=== PATIENT | male | born 1975 | race Caucasian/White ===

== ENCOUNTER 2020-02-03 13:41 | Emergency (ER) | payer SELFPAY ==
[2020-02-03 14:05] VITALS: BP 134/72; PULSE 66; RESP 18; TEMP 36.6; O2SAT 100; BMI 19.0
--- NOTE | 2020-02-03 14:10 | ED_ITS ---
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 Patient reports starting yesterday he started throwing up in the evening and has persisted throughout the night. Patient reports some epigastric abdominal pain. Patient appears mildly unwell. Patient appears in no severe pain. MD elicited complaint: nausea and vomiting Associated nausea: Yes Associated symtoms: Reports nausea Review of Systems General: Reports: 10 or more systems reviewed and unremarkable except in HPI and below GI: Reports: nausea and vomiting PFSH ED PFSH: Social History Smoking and tobacco status: never smoked Physical Exam Const: COMMON NORMALS: no apparent distress and oriented x3 GENERAL APPEARANCE: cooperative HENMT: COMMON NORMALS: normocephalic, TM's normal bilaterally and external nose normal HEAD & SCALP: normal to inspection and normocephalic NOSE: external nose normal TYMPANIC MEMBRANE: TM's normal bilaterally MOUTH: oral and palatal mucosa abnormal (Oral mucosa is dry) THROAT: posterior oropharynx normal Eye: GENERAL EYE: normal appearance of both eyes Neck/C-Spine: COMMON NORMALS: full ROM Lymph: LYMPHATIC: no lymphadenopathy noted Chest: COMMONS NORMALS: inspection of chest normal Resp: COMMON NORMALS: normal respiratory effort EFFORT & INSPECTION: Yes able to speak in complete sentences Cardio: COMMON NORMALS: regular rate and regular rhythm RATE: regular rate RHYTHM: regular rhythm GI: PALPATION: Yes tender (mild central) : COMMON NORMALS: Yes no CVA tenderness BLADDER/KIDNEY EXAM: Yes no CVA tenderness Back/Pelvis: COMMON NORMALS: no CVA tenderness and thoracic and lumbar spine normal to inspection Extremity: COMMON NORMALS: normal to inspection Neuro: COMMON NORMALS: oriented x3 and moves all extremities Psych: COMMON NORMALS: mental status grossly normal and cooperative Skin: COMMON NORMALS: no rashes or lesions noted GENERAL SKIN EXAM: no rashes or lesions noted Course Vital Signs: Vital signs: Vital Signs Temperature 98 F 02/03/20 14:05 Pulse Rate 66 02/03/20 14:05 Respiratory Rate 16 02/03/20 14:34 Blood Pressure 134/72 02/03/20 14:05 Pulse Oximetry 100 02/03/20 14:05 MDM - Nausea/Vomiting/Diarrhea MDM Narrative: Medical decision making narrative: Patient comes in today for concerns of heat exhaustion and dehydration. 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 Patient reports that he feels like this is what is going on today. On exam patient abdomen soft with some mild epigastric tenderness. Respirations are even lungs are clear to auscultation vital signs are normal. Differential diagnosis includes gastroenteritis, heat exhaustion, dehydration, pancreatitis. Laboratory values noted dehydration with a creatinine of 1.2 and BUN of 25. Patient also had some mild hypokalemia. Patient was treated with IV fluids 1500 mL's with improvement of symptoms. Patient was also given ondansetron for nausea and 20 mEq of potassium for low potassium. Reviewed exam and recommendations for follow-up with patient. Patient reported understanding agreed to plan. Lab Data: Labs: Lab Results 02/03/20 02/03/20 Range/Units 14:32 14:32 WBC 13.0 H (4.0-10.0) 10^3/ uL RBC 5.21 (4.1-5.3) 10^6/u L Hgb 15.6 (11.7-16.6) g/dL Hct 46.8 (42.0-52.0) % MCV 89.8 (80-94) fL MCH 29.9 (28.0-34.0) pg MCHC 33.3 (30.0-36.0) g/dL RDW 13.1 (12.1-15.1) % Plt Count 374 (130-400) 10^3/c mm MPV 10.1 (7.4-10.4) fL Neut % (Auto) 77.1 % Lymph % (Auto) 13.1 % [place] % (Auto) 9.3 % Eos % (Auto) 0.0 % Baso % (Auto) 0.2 % Neut # (Auto) 10.0 H (1.8-7.7) 10^3/u L Lymph # (Auto) 1.7 (0.8-4.8) 10^3/u L [place] # (Auto) 1.2 H (0.2-0.9) 10^3/u L Eos # (Auto) 0.0 (0.0-0.8) 10^3/u L Baso # (Auto) 0.0 (0.0-0.1) 10^3/u L Nucleated RBC % (a uto) 0 % Nucleated RBCs # 0.0 /100WBC Sodium 138 (136-145) mmol/L Potassium 3.2 L (3.5-5.1) mmol/L Chloride 92 L (98-107) mmol/L Carbon Dioxide 29 (22-29) mmol/L Anion Gap 20.2 H (5-19) BUN 25 H (6-20) mg/dL Creatinine 1.2 (0.7-1.2) mg/dL GFR Calculation 66.4 L (90-130) mL/min Glucose 121 H (65-115) mg/dL Calculated Osmolal ity 284 L (285-295) mOsm/k g Calcium 10.2 (8.5-10.5) mg/dL Total Bilirubin 1.8 H (0.15-1.2) mg/dL AST 30 (0-40) U/L ALT 58 H (0-41) U/L Alkaline Phosphata se 88 (40-130) IU/L Creatine Kinase 493 H* (39-308) U/L Total Protein 8.1 (6.6-8.7) g/dL Albumin 4.8 (3.5-5.2) g/dL Globulin 3.3 (1.3-4.6) g/dL Lipase 17 (13-60) U/L Discharge Plan Discharge Patient Disposition: Home, Self-Care Clinical Impression: Dehydration Heat exhaustion Qualifiers: Encounter type: initial encounter Qualified Code(s): T67.5XXA - Heat exhaustion, unspecified, initial encounter Condition: Stable Prescriptions: New ondansetron HCl 4 mg tablet 4 mg PO Q8H PRN (Reason: nausea and vomiting) Qty: 7 RF: 0 Discharge Orders: Discharge Order (Routine); Ordered 02/03/20 Ordered By: Kevin De Jesus Discharge Diet: Advance as tolerated Discharge Activity: Increase activity as tolerated Patient Instructions: Heat Exhaustion (ED) Activity Restrictions/Additional Instructions: Home and rest. Drink plenty of fluids. Use an electrolyte solution such as Gatorade when sweating a lot. Avoid the extreme heat of the midday. Follow-up with primary care in 1 week. Return to the ER for worsening signs and symptoms or new concerns. Coding Level of Care Code ED Foreign Collection Clerk for Chg Fwd Exam Comprehensive
[2020-02-03 14:34] VITALS: RESP 16
[2020-02-03] MEDS: sodium chloride 0.9% 1,000 ML 999 ML IV (14:44)
[2020-02-03] MEDS: ondansetron 2 mg/ML SDV 2 mL 4 MG IVP (14:44)
[2020-02-03 14:45] LABS: Basophils % 0.2 %; Hematocrit 46.8 % (42.0-52.0); Hemoglobin 15.6 g/dL (11.7-16.6); Lymphocytes # 1.7 10^3/uL (0.8-4.8); Lymphocytes % 13.1 %; Mean Corpuscular HGB Conc 33.3 g/dL (30.0-36.0); Mean Corpuscular Hemoglobin 29.9 pg (28.0-34.0); Mean Corpuscular Volume 89.8 fL (80-94); Mean Platelet Volume 10.1 fL (7.4-10.4); Monocytes # 1.2 10^3/uL (0.2-0.9); Monocytes % 9.3 %; Neutrophils % 77.1 %; Nucleated Red Blood Cells % 0 %; Platelet Count 374 10^3/cmm (130-400); Red Blood Count 5.21 10^6/uL (4.1-5.3); Red Cell Distribution Width 13.1 % (12.1-15.1)
[2020-02-03 15:11] LABS: Alanine Aminotransferase 58 U/L (0-41); Albumin Level 4.8 g/dL (3.5-5.2); Alkaline Phosphatase 88 IU/L (40-130); Anion Gap 20.2 (5-19); Aspartate Amino Transferase 30 U/L (0-40); Blood Urea Nitrogen 25 mg/dL (6-20); Calcium 10.2 mg/dL (8.5-10.5); Carbon Dioxide 29 mmol/L (22-29); Chloride 92 mmol/L (98-107); Globulin 3.3 g/dL (1.3-4.6); Glomerular Filtration Rate 66.4 mL/min (90-130); Glucose 121 mg/dL (65-115); Lipase 17 U/L (13-60); Osmolality Calculated 284 mOsm/kg (285-295); Potassium 3.2 mmol/L (3.5-5.1); Sodium 138 mmol/L (136-145); Total Bilirubin 1.8 mg/dL (0.15-1.2); Total Protein 8.1 g/dL (6.6-8.7)
[2020-02-03 15:22] LABS: Creatine Phosphokinase 493 U/L (39-308)
[2020-02-03] MEDS: sodium chloride 0.9% 500 ML 999 ML IV (15:43)
[2020-02-03 16:06] VITALS: PULSE 78; RESP 17; O2SAT 96
== END 2020-02-03 16:07 | disposition home or self-care (01) ==
PROVIDERS: Emergency Provider Nurse Practitioner Family
DX: T67.5XXA Heat exhaustion, unspecified, initial encounter (principal); X30.XXXA Exposure to excessive natural heat, initial encounter; E86.0 Dehydration
CPT/HCPCS: 12345; 36415; 80053; 82550; 83690; 85025; 96361; 96374; 96375; 99282; 99283; J2405; J7030; J7040